=== PATIENT | male | born 1950 | race Caucasian/White ===

== ENCOUNTER 2019-06-21 23:45 | Inpatient (IN) | payer MEDICARE, MEDICAID ==
[~2019-06-21] VITALS: Ht 182.9 cm; Wt 123.8 kg
[~2019-06-21 23:45] MED LIST: CARV12.5 PO
[2019-06-22] VITALS (41 sets, daily range): BP systolic 69–153; BP diastolic 40–79
[2019-06-22] MEDS ORDERED: ONDANSETRON HCL/PF 4 MG/2 ML VIAL ONE (00:10)
--- NOTE | 2019-06-22 00:15 | NUR ---
PT CAME TO ER BIB RA C/O NAUSEA AND VOMITING OF BLOOD. PT STATES THAT HE WAS AT HOME WHEN HE WAS VOMITING BLOOD AFTER TAKING ZOFRAN AT HOME. PT STATES HE HAS HEMOPHILIA. PT ALSO COMPLAINS OF CONSTIPATION AND TOOK MILK OF MAGNESIA. AAOX4. NO SOB. BREATHING EVENLY AND UNLABORED ON ROOM AIR. CONNECTED TO MONITOR.
[2019-06-22] MEDS ORDERED: IV NS 0.9% 500 ML BAG IV ONE (00:30)
[2019-06-22] MEDS ORDERED: ONDANSETRON HCL/PF 4 MG/2 ML VIAL IVP ONE (00:30)
[2019-06-22 00:37] LABS: BASOPHILS % (AUTO) 0.2 % (0.0-2.0); EOSINOPHILS % (AUTO) 0.2 % (0.0-6.0); HEMATOCRIT 37 % (39-51); HEMOGLOBIN 11.9 g/dL (13.5-17.5); LYMPHOCYTES # (AUTO) 0.9 /CMM (0.8-4.8); LYMPHOCYTES % (AUTO) 7.7 % (20.0-44.0); MEAN CORPUSCULAR HGB CONC 33 g/dl (31.0-36.0); MEAN CORPUSCULAR VOLUME 92 fL (80-96); MONOCYTES # (AUTO) 0.7 /CMM (0.1-1.30); MONOCYTES % (AUTO) 6.2 % (2.0-12.0); NEUTROPHILS # (AUTO) 9.6 /CMM (1.8-8.9); NEUTROPHILS % (AUTO) 85.7 % (43.0-81.0); PLATELET COUNT (AUTO) 99 /CMM (150-450); RED BLOOD CELL COUNT(AUTO) 3.97 MIL/uL (4.5-6.0); WHITE BLOOD COUNT (AUTO) 11.2 K/uL (4.3-11.0)
[2019-06-22 00:44] LABS: CARBON DIOXIDE 26 mmol/L (21-32); CHLORIDE 104 mmol/L (98-107); CREATININE 0.9 mg/dL (0.6-1.3); GLUCOSE 173 mg/dL (74-106); POTASSIUM 5.3 mmol/L (3.5-5.1); SODIUM SERUM 139 mmol/L (136-145); UREA NITROGEN, BLOOD 17 mg/dL (7-18)
[2019-06-22 00:49] LABS: ALANINE AMINOTRANSFERASE 26 U/L (12-78); ALBUMIN 2.6 g/dL (3.4-5.0); ALKALINE PHOSPHATASE 139 U/L (46-116); ASPARTATE AMINOTRANSFERASE 37 U/L (15-37); BILIRUBIN,DIRECT 0.5 mg/dL (0.0-0.2); BILIRUBIN,TOTAL 1.4 mg/dL (0.2-1.0); LIPASE 64 U/L (73-393); TOTAL PROTEIN, SERUM 7.1 g/dL (6.4-8.2)
--- NOTE | 2019-06-22 01:09 | NUR ---
PT SENT TO CT
--- NOTE | 2019-06-22 01:14 | NUR ---
FECAL OCCULT BLOOD SAMPLE COLLECTED AND SENT TO LAB
--- NOTE | 2019-06-22 01:23 | NUR ---
RETURN FROM CT
[2019-06-22 01:50] LABS: LYMPHOCYTES % (MANUAL) 5 % (16-48); MONOCYTES % (MANUAL) 4 % (0-11.0); NEUTROPHILS % (MANUAL) 91 (42-76)
[2019-06-22] MEDS ORDERED: METOCLOPRAMIDE HCL 10 MG/2 ML VIAL IV ONE (02:00)
[2019-06-22 02:13] LABS: OCCULT BLOOD STOOL NEGATIVE (NEGATIVE)
[2019-06-22] MEDS ORDERED: HYDROCODONE/APAP 5/325MG 1 EACH TABLET PO PRN (02:30)
[2019-06-22] MEDS ORDERED: ONDANSETRON HCL/PF 4 MG/2 ML VIAL IVP PRN (02:30)
[2019-06-22] MEDS ORDERED: MORPHINE SULFATE INJ 2 MG/ML DISP.SYRIN IV PRN (02:30)
[2019-06-22] MEDS ORDERED: MAGNESIUM HYDROXIDE 30 ML UDC PO PRN (02:30)
[2019-06-22] MEDS ORDERED: MAG HYDROX/AL HYDROX/SIMETH 30 ML UDC PO PRN (02:30)
[2019-06-22] MEDS ORDERED: ACETAMINOPHEN 325 MG TABLET PO PRN (02:30)
[2019-06-22] MEDS ORDERED: Z GUARD REMEDY 2 OZ OINT TP PRN (02:30)
[2019-06-22] MEDS ORDERED: ZOLPIDEM TARTRATE 5 MG TABLET PO PRN (02:30)
[2019-06-22] MEDS ORDERED: METOCLOPRAMIDE HCL 10 MG/2 ML VIAL ONE (02:48)
--- NOTE | 2019-06-22 02:59 | NUR ---
Report given to Aranza RODRIGUEZ for MELLISA.
--- NOTE | 2019-06-22 03:00 | NUR ---
received from the ER via [facility] alert and orientated. C/o back pain, laying on the gurneys does't help. I need something for pain and some jello, he is demanding. Spoke to hime calmly and told him I needed to admit him and to let him know, the MD wrote Nothing by mouth, but I would let him rinse his mouth. Patient is pael Saline lock left AC g20 patent
[2019-06-22] MEDS: IV 1/2NS 1000 ML 1,000 ML IV PRN (04:08)
[2019-06-22] MEDS ORDERED: FINA5TAB11 PO (04:40)
--- NOTE | 2019-06-22 06:05 | NUR ---
ENDING NOTES: RECIEVED PATIENT FROM ER IN AN IRRITABLE MOOD, UPSET HE CANNOT EAT, i EXPLAINED TO HIM THE REASON FOR THIS, mEDICATED WITH MORPHINE 2 MG FOR BACK PAIN OF #8 IN INTENSITY AND EFFECTIVE. HE HAD A bm USING THE bs COLOR BLACK bm SOFT. NOTED STOOL SENT IN THE er AND WAS NEG FOR OCB. PATENT IS PALE, BUT SKIN WARM AND DRY. HE C/O I JUST WANT TO EAT AND GO TO SLEEP. I A LLOWED HIM TO RINSE HIS MOUTH AND SPIT THE H2O OUT. BEDALARM ON. HE STATED SINCE HIS BACK SURGERY 04/19/2019 HIS LEGS ARE NUMB HE CAN STAND AND USE THEM BUT THEY BOTH ARE NUMB.
--- NOTE | 2019-06-22 06:20 | NUR ---
ENDING NOTE ADDITIONAL NOTES: PATIENT OOB TO THE BSC, 2ND BLACK MUSHY STOOL SMELLING LIKE GI BLEED STOOL.
[2019-06-22 07:00] LABS: BASOPHILS % (AUTO) 0.1 % (0.0-2.0); HEMATOCRIT 31 % (39-51); HEMOGLOBIN 10.5 g/dL (13.5-17.5); LYMPHOCYTES # (AUTO) 0.7 /CMM (0.8-4.8); LYMPHOCYTES % (AUTO) 7.4 % (20.0-44.0); MEAN CORPUSCULAR HGB CONC 34 g/dl (31.0-36.0); MEAN CORPUSCULAR VOLUME 91 fL (80-96); MONOCYTES # (AUTO) 0.5 /CMM (0.1-1.30); MONOCYTES % (AUTO) 4.8 % (2.0-12.0); NEUTROPHILS # (AUTO) 8.4 /CMM (1.8-8.9); NEUTROPHILS % (AUTO) 87.7 % (43.0-81.0); PLATELET COUNT (AUTO) 88 /CMM (150-450); RED BLOOD CELL COUNT(AUTO) 3.45 MIL/uL (4.5-6.0); WHITE BLOOD COUNT (AUTO) 9.6 K/uL (4.3-11.0)
[2019-06-22 07:22] LABS: LYMPHOCYTES % (MANUAL) 7 % (16-48); MONOCYTES % (MANUAL) 3 % (0-11.0); NEUTROPHILS % (MANUAL) 90 (42-76)
--- NOTE | 2019-06-22 07:30 | NUR ---
RN OPENING NOTES RECEIVED PATIENT IN BED RESTING. NOT IN ANY FORM OF DISTRESS, NO SOB. IV ACCESS INTACT AND PATENT. COMPLAINTS OF BLOODY STOOLS. WILL NOTIFY MD. KEPT PATIENT SAFE AND COMFORTABLE. KEPT NPO. BED IN LOW/FIFI DPSOTIION, SIDERAILS UPX2, CALL LIGHT IN REACH. WILL MONITOR ACCORDINGLY
[2019-06-22] MEDS ORDERED: FURO20TA4 PO (08:12)
[2019-06-22] MEDS ORDERED: OLME20TA23 PO (08:12)
[2019-06-22] MEDS ORDERED: OXYC10TA49 PO (08:12)
[2019-06-22] MEDS ORDERED: AMIL5TAB9 PO (08:12)
[2019-06-22] MEDS ORDERED: MULT-447 PO (08:14)
[2019-06-22] MEDS ORDERED: PANTOPRAZOLE 40 MG VIAL IV SCH (09:00)
[2019-06-22] MEDS ORDERED: OCTREOTIDE 1,250 MCG in IV NS 0.9% 247.5 ML IV PRN ×2 (10:30→11:00)
[2019-06-22] MEDS ORDERED: LORAZEPAM INJ 2 MG/ML VIAL IV PRN (10:30)
--- NOTE | 2019-06-22 10:45 | NUR ---
PICKED UP FOR EDG. CONSENTS SIGNED BY PATIENT.
[2019-06-22] MEDS ORDERED: EPINEPHRINE (1:1000) 1 MG/ML AMPUL ONE (11:09)
[2019-06-22] MEDS ORDERED: EPINEPHRINE (1:10,000) SYRINGE 1 MG/10 ML DISP.SYRIN ONE (11:10)
--- NOTE | 2019-06-22 11:45 | NUR ---
received a call from OR nurse, stated that patient will be transfer to ICU.
[2019-06-22 11:56] LABS: OCCULT BLOOD STOOL NEGATIVE (NEGATIVE)
--- NOTE | 2019-06-22 12:00 | NUR ---
RT NOTE RECEIVED PT FROM OR, INTUBATED WITH AN 8.0 ETT, 23 @LIP XRAY PENDING, DR. COLON AT BESIDE WITH NOTED VENT SETTINGS ORDER ABG IN 1HR, WILL CONTINUE TO MONITOR CLOSELY
--- NOTE | 2019-06-22 12:10 | NUR ---
ICU/RN PT TRANSFERRED FROM OR ,S/P EGD,INTUBATED ON THE VENT AC MODE.FIO2-100%. SAT O2-100% .HR -130-135 BPM.V/S STABLE.AFEBRILE.PT IS STILL UNDER ANESTHESIA.ON SANDOSTATIN DRIP.AND IV FLUIDS.
[2019-06-22 12:48] LABS: BASOPHILS % (AUTO) 0.1 % (0.0-2.0); EOSINOPHILS % (AUTO) 0.1 % (0.0-6.0); HEMATOCRIT 24 % (39-51); HEMOGLOBIN 7.8 g/dL (13.5-17.5); MEAN CORPUSCULAR HGB CONC 32 g/dl (31.0-36.0); MEAN CORPUSCULAR VOLUME 94 fL (80-96); MONOCYTES # (AUTO) 2.5 /CMM (0.1-1.30); MONOCYTES % (AUTO) 9.9 % (2.0-12.0); NEUTROPHILS # (AUTO) 20.3 /CMM (1.8-8.9); NEUTROPHILS % (AUTO) 81.9 % (43.0-81.0); PLATELET COUNT (AUTO) 144 /CMM (150-450); RED BLOOD CELL COUNT(AUTO) 2.58 MIL/uL (4.5-6.0); WHITE BLOOD COUNT (AUTO) 24.8 K/uL (4.3-11.0)
--- NOTE | 2019-06-22 13:00 | NUR ---
RN NOTES: PATIENT BELONGINGS BROUGHT TO ICU. GAVE TO JENNIFER ENGLE
--- NOTE | 2019-06-22 13:00 | NUR ---
ICU/RN NEW IV INSERTED.F/C INSERTED ORDERED.DIPRIVAN ORDERED FOR SEDATION PT PLACED ON RESTRAINS.
[2019-06-22] MEDS: PROPOFOL 100 ML IV PRN ×3 (13:23→20:59)
[2019-06-22] MEDS ORDERED: IV NS 0.9% 250 ML IV ONE (14:00)
[2019-06-22 16:43] LABS: HEMATOCRIT 26 % (39-51); HEMOGLOBIN 8.3 g/dL (13.5-17.5); LYMPHOCYTES % (AUTO) 4.9 % (20.0-44.0); MEAN CORPUSCULAR HGB CONC 32 g/dl (31.0-36.0); MEAN CORPUSCULAR VOLUME 94 fL (80-96); MONOCYTES # (AUTO) 5.5 /CMM (0.1-1.30); MONOCYTES % (AUTO) 13.5 % (2.0-12.0); NEUTROPHILS # (AUTO) 33.2 /CMM (1.8-8.9); NEUTROPHILS % (AUTO) 81.6 % (43.0-81.0); PLATELET COUNT (AUTO) 167 /CMM (150-450); RED BLOOD CELL COUNT(AUTO) 2.76 MIL/uL (4.5-6.0)
--- NOTE | 2019-06-22 17:00 | NUR ---
ICU/RN CENTRAL LINE INSERTED ORDERED.LEVOPHED STARTED ORDERED.DUE MEDS ARE GIVEN.RIGHT NG TUBE IN PLACE,CONNECTED TO LOW INTERMEDIATE SUCTION 400 ML BLOODY SECRETION OUTPUT.PM CARE PROVIDED.REPOSITION FOR COMFORT.F/C IN PLACE WITH MINIMAL AMOUNT OF URINE.PT IS ON DIPRIVAN .
[2019-06-22 17:07] LABS: WHITE BLOOD COUNT (AUTO) 40.7 K/uL (4.3-11.0)
[2019-06-22] MEDS: LEVOFLOXACIN 500 MG /D5W 100ML 500 MG in PREMIX 1 EA IV SCH (17:09)
[2019-06-22 17:14] LABS: BAND % (MANUAL) 2 % (0.0-5.0); LYMPHOCYTES % (MANUAL) 7 % (16-48); MONOCYTES % (MANUAL) 13 % (0-11.0); NEUTROPHILS % (MANUAL) 88 (42-76)
[2019-06-22] MEDS: NOREPINEPHRINE 8 MG in IV D5W 500 ML IV PRN (17:56)
[2019-06-22] MEDS: PANTOPRAZOLE 40 MG VIAL IV SCH (17:57)
--- NOTE | 2019-06-22 20:17 | NUR ---
Pt received on [facility] vent with ETT 8.0 @ 23cm lip. Vent setting as noted. Pt tolerating setting well, no sob or distress noted. Diminished bilateral breath sounds noted. Lock Tender noted. Vent to red outlet. Alarms set and audible. Will continue to monitor. Addendum: 06/22/19 at 2017 by CHAPARRITA ROSADO RT Amended: Links added.
[2019-06-22 21:24] LABS: HEMOGLOBIN 7.8 g/dL (13.5-17.5)
[2019-06-23] VITALS (66 sets, daily range): BP systolic 44–166; BP diastolic 20–113
[2019-06-23] MEDS: IV 1/2NS 1000 ML 1,000 ML IV PRN ×2 (01:10→09:32)
[2019-06-23] MEDS: PROPOFOL 100 ML IV PRN ×3 (01:16→09:28)
[2019-06-23] MEDS ORDERED: NOREPINEPHRINE 4 MG/4 ML AMPUL IV ONE ×2 (01:31→05:45)
[2019-06-23] MEDS: NOREPINEPHRINE 8 MG in IV D5W 500 ML IV PRN ×2 (01:34→05:50)
[2019-06-23 05:02] LABS: BASOPHILS # (AUTO) 0.1 /CMM (0.0-0.2); BASOPHILS % (AUTO) 0.1 % (0.0-2.0); LYMPHOCYTES # (AUTO) 2.9 /CMM (0.8-4.8); LYMPHOCYTES % (AUTO) 7.8 % (20.0-44.0); MEAN CORPUSCULAR HGB CONC 32 g/dl (31.0-36.0); MEAN CORPUSCULAR VOLUME 96 fL (80-96); MONOCYTES # (AUTO) 2.3 /CMM (0.1-1.30); MONOCYTES % (AUTO) 6.2 % (2.0-12.0); NEUTROPHILS % (AUTO) 85.9 % (43.0-81.0); PLATELET COUNT (AUTO) 148 /CMM (150-450)
[2019-06-23 05:11] LABS: CALCIUM, SERUM 7.3 mg/dL (8.5-10.1); CREATININE 2.8 mg/dL (0.6-1.3); POTASSIUM 5.2 mmol/L (3.5-5.1)
[2019-06-23] MEDS ORDERED: PHENYLEPHRINE 10 MG/ML VIAL ONE (05:19)
[2019-06-23 05:22] LABS: HEMOGLOBIN 6.4 g/dL (13.5-17.5); WHITE BLOOD COUNT (AUTO) 37.2 K/uL (4.3-11.0)
[2019-06-23 05:23] LABS: HEMATOCRIT 20 % (39-51)
[2019-06-23] MEDS: PHENYLEPHRINE 80 MG in IV D5W 250 ML IV PRN ×3 (05:26→14:15)
--- NOTE | 2019-06-23 05:30 | NUR ---
MARKETING INTERN NOTE PT SBP 40-60 WITH LEVO MAXED OUT. NOTIFIED VOCATIONAL REHABILITATION SPECIALIST WITH ORDERS TO START PHENYLEPHRINE. ORDERS NOTED AND CARRIED OUT.
[2019-06-23 06:27] LABS: HEMOGLOBIN 8.4 g/dL (13.5-17.5)
--- NOTE | 2019-06-23 07:37 | NUR ---
TECHNICAL EDITOR NOTE VENT SETTINGS WELL TOLERATED. NGT TO LOW INTERMITTENT SUCTION WITH 200 ML OF SANGUINOUS OUTPUT. REMAINS ON LEVO, DIPRIVAN, SANDOSTATIN AND EMIR DRIPS. ALL NEEDS ATTENDED TO PROMPTLY. SUCTIONED NEEDED. REPOSITIONED Q2H. BLOOD PRESSURE MONITORED AND PRESSORS TITRATED NEEDED. CRITICAL LAB VALUE H/H 6.4 WITH REDRAW RESULTING AT 8.08/27. WILL ENDORSE TO NEXT SHIFT FOR CONTINUITY OF CARE.
[2019-06-23] MEDS: PANTOPRAZOLE 40 MG VIAL IV SCH (08:33)
[2019-06-23 08:42] LABS: BAND % (MANUAL) 6 % (0.0-5.0); LYMPHOCYTES % (MANUAL) 4 % (16-48); MONOCYTES % (MANUAL) 4 % (0-11.0); NEUTROPHILS % (MANUAL) 86 (42-76)
--- NOTE | 2019-06-23 09:00 | NUR ---
ICU/RN SEDATION VACATION PROVIDED.DECREASED PROPOFOL.PT IS NOT STABLE ON 2 PRESSORS MAXIMUM DOSES,ON SANDOSTATIN DRIP,IV FLUIDS ORDERED.NO URINE OUTPUT.
[2019-06-23] MEDS: NOREPINEPHRINE 16 MG in IV D5W 500 ML IV PRN ×2 (09:15→14:54)
[2019-06-23 09:18] LABS: ABG BASE EXCESS -16.2 mmol/L; ABG OXYGEN SATURATION 96.2 % (92.0-98.5); ABG PCO2 25.4 mmHg (35.0-45.0); ABG PH 7.217 (7.350-7.450); ABG PO2 113.6 mmHg (75.0-100.0); AaDO2 178.4 mmHg; COHb 0.3 % (0.5-1.5); MetHb 1.4 % (0.0-1.5); O2Hb 94.6 % (94.0-97.0); PEEP,BG 0 cm H2O; SITE, ABG Right Radial; VT, ABG 700 mL
--- NOTE | 2019-06-23 11:00 | NUR ---
ICU/RN HILARIA JENSEN.
[2019-06-23] MEDS: LEVOFLOXACIN 500 MG /D5W 100ML 500 MG in PREMIX 1 EA IV SCH (11:06)
--- NOTE | 2019-06-23 11:20 | NUR ---
ICU/RN CODE BLUE ACTIVATED.PT HAS NO BLOOD PRESSURE, PEA.
[2019-06-23] MEDS ORDERED: EPINEPHRINE (1:10,000) SYRINGE 1 MG/10 ML DISP.SYRIN IVP ONE ×2 (11:30→12:30)
[2019-06-23] MEDS ORDERED: SODIUM BICARBONATE SYR 50 MEQ/50 ML DISP.SYRIN IV ONE ×2 (11:30→12:30)
[2019-06-23] MEDS ORDERED: FEE EMEERGENCY 1 MIN EA MC ONE ×2 (11:30→12:30)
[2019-06-23] MEDS ORDERED: Sodium Bicarbonate 150 MEQ in IV D5W 1,000 ML IV PRN (11:30)
--- NOTE | 2019-06-23 11:30 | NUR ---
RT NOTE: LATE ENTRY-RESPONDED TO CODE BLUE AND BEGAN COMPRESSIONS IMMEDIATELY. RT'S (OPAL) AT BEDSIDE. ONCE PATIENT WAS STABILIZED, PATIENT WAS PLACED BACK ON MECHANICAL VENT AND VENT SETTINGS CHANGED PER 'S ORDERS. ALARMS CHECKED AND AUDIBLE. AMBU BAG AT [facility].
[2019-06-23] MEDS ORDERED: VASOPRESSIN INJ 50 UNIT in IV D5W 497.5 ML IV PRN (12:00)
[2019-06-23] MEDS ORDERED: IV NS 0.9% 1,000 ML BAG IV ONE (12:30)
[2019-06-23] MEDS ORDERED: EPINEPHRINE (1:1000) 1 MG in IV D5W 250 ML IV PRN (12:30)
--- NOTE | 2019-06-23 12:40 | NUR ---
ICU/RN SECOND CODE BLUE ACTIVATED .PT IS PEA.3 DOSES OF EPINEPHRINE IV ,2 AMPS OF SODIUM BICARB GIVEN,BS -29.D 50% GIVEN . 1L BOLUS OF NS GIVEN,PT HAS PRBC INFUSING AT THIS TIME.ON SANDOSTATIN DRIP AND DW5 PLUS 3 AMPS OF SODIUM BICARBONATE.A-LINE INSERTED BY HOMER KAY.HE IS AT BEDSIDE.
[2019-06-23 12:44] LABS: ABG BASE EXCESS -24.2 mmol/L; ABG OXYGEN SATURATION 98.6 % (92.0-98.5); ABG PCO2 22.3 mmHg (35.0-45.0); ABG PH 6.975 (7.350-7.450); ABG PO2 361.3 mmHg (75.0-100.0); AaDO2 329.4 mmHg; MetHb 1.9 % (0.0-1.5); O2Hb 96.7 % (94.0-97.0); SITE, ABG A-Line
[2019-06-23 13:50] LABS: BASOPHILS # (AUTO) 0.2 /CMM (0.0-0.2); BASOPHILS % (AUTO) 0.4 % (0.0-2.0); LYMPHOCYTES # (AUTO) 5.5 /CMM (0.8-4.8); LYMPHOCYTES % (AUTO) 15.5 % (20.0-44.0); MEAN CORPUSCULAR HGB CONC 30 g/dl (31.0-36.0); MEAN CORPUSCULAR VOLUME 104 fL (80-96); MONOCYTES # (AUTO) 3.2 /CMM (0.1-1.30); MONOCYTES % (AUTO) 8.9 % (2.0-12.0); NEUTROPHILS # (AUTO) 26.9 /CMM (1.8-8.9); NEUTROPHILS % (AUTO) 75.2 % (43.0-81.0); PLATELET COUNT (AUTO) 66 /CMM (150-450)
[2019-06-23 13:52] LABS: HEMATOCRIT 17 % (39-51); HEMOGLOBIN 5.1 g/dL (13.5-17.5); RED BLOOD CELL COUNT(AUTO) 1.65 MIL/uL (4.5-6.0); WHITE BLOOD COUNT (AUTO) 35.7 K/uL (4.3-11.0)
[2019-06-23 14:25] LABS: CALCIUM, SERUM 6.7 mg/dL (8.5-10.1); CREATININE 4.1 mg/dL (0.6-1.3)
[2019-06-23 14:26] LABS: TOTAL PROTEIN, SERUM 3.2 g/dL (6.4-8.2)
[2019-06-23 14:59] LABS: ALBUMIN 1.1 g/dL (3.4-5.0); POTASSIUM 6.5 mmol/L (3.5-5.1)
[2019-06-23 15:03] LABS: BAND % (MANUAL) 9 % (0.0-5.0); LYMPHOCYTES % (MANUAL) 9 % (16-48); MONOCYTES % (MANUAL) 10 % (0-11.0); NEUTROPHILS % (MANUAL) 70 (42-76); REACTIVE LYMPHOCYTES 2 % (0-0)
--- NOTE | 2019-06-23 15:53 | NUR ---
PATIENT NOTED ASYSTOLE ON MONITOR. PATIENT NOTED WITHOUT HEART TONE, NO PALPABLE PULSES. NO SPONTANEOUS RESPIRATIONS. PUPILS FIXED AND DILATED. PATIENT IS NOR DNR STATUS. FRIENDS AT BEDSIDE.
--- NOTE | 2019-06-23 15:53 | NUR ---
RT NOTE: PATIENT PER CRN (EDIN).
--- NOTE | 2019-06-23 16:00 | NUR ---
ICU/RN PT FRIENDS AT BED SIDE HAS NO MORTUARY INFO AT THIS TIME .BODY WILL GO TO [facility].
--- NOTE | 2019-06-23 17:40 | NUR ---
ICU/RN POST MORTEM CARE DONE .BODY TRANSFERRED TO [facility]. FAMILY DOES NOT HAVE ANY ARRANGEMENT AT THIS TIME.
== END 2019-06-23 18:38 | disposition expired | DRG 432 ==
LOC: ER 23:46 → TELE 06-22 02:24 → MED 06-22 08:58 → ICU 06-22 12:02
PROVIDERS: ADMIT Internal Medicine; ATTEND Internal Medicine
PROC: 02HV33Z Insertion of Infusion Device into Superior Vena Cava, Percutaneous Approach (ICD-10-PCS; principal; 2019-06-22)
PROC: B548ZZA Ultrasonography of Superior Vena Cava, Guidance (ICD-10-PCS; 2019-06-22)
PROC: 06L38CZ Occlusion of Esophageal Vein with Extraluminal Device, Via Natural or Artificial Opening Endoscopic (ICD-10-PCS; 2019-06-22)
PROC: 30233N1 Transfusion of Nonautologous Red Blood Cells into Peripheral Vein, Percutaneous Approach (ICD-10-PCS; 2019-06-23)
PROC: 04HY33Z Insertion of Infusion Device into Lower Artery, Percutaneous Approach (ICD-10-PCS; 2019-06-23)
PROC: 5A12012 Performance of Cardiac Output, Single, Manual (ICD-10-PCS; 2019-06-23)
DX: K74.69 Other cirrhosis of liver (principal); I85.11 Secondary esophageal varices with bleeding; G93.41 Metabolic encephalopathy; J96.01 Acute respiratory failure with hypoxia; N17.0 Acute kidney failure with tubular necrosis; D66 Hereditary factor VIII deficiency; D62 Acute posthemorrhagic anemia; E87.2 Acidosis; G93.49 Other encephalopathy; K76.6 Portal hypertension; J98.11 Atelectasis; R18.8 Other ascites; R57.1 Hypovolemic shock; D69.6 Thrombocytopenia, unspecified; I10 Essential (primary) hypertension; E66.01 Morbid (severe) obesity due to excess calories; F32.9 Major depressive disorder, single episode, unspecified; F41.9 Anxiety disorder, unspecified; G47.33 Obstructive sleep apnea (adult) (pediatric); M51.36 Other intervertebral disc degeneration, lumbar region; K57.30 Diverticulosis of large intestine without perforation or abscess without bleeding; K80.20 Calculus of gallbladder without cholecystitis without obstruction; K75.81 Nonalcoholic steatohepatitis (NASH); M48.10 Ankylosing hyperostosis [Forestier], site unspecified; Z79.891 Long term (current) use of opiate analgesic; Z68.37 Body mass index [BMI] 37.0-37.9, adult; E16.2 Hypoglycemia, unspecified
CPT/HCPCS: 31720; 36415; 36600; 70450-TC; 71045-TC; 80048-TC; 80053-TC; 80061-TC; 80076-TC; 82272-TC; 82803-TC; 82962-TC; 83605-TC; 83690-TC; 83735-TC; 84100-TC; 84484-TC; 85025-TC; 85027-TC; 85730-TC; 86850-TC; 86921-TC; 87081-TC; 92950-TC; 94002-TC; 94003-TC; A4216; C1751; C9113; G0378; J0171; J1956; J2270; J2354; J2370; J2405; J2765; J3490; J7030; J7040; J7050; J7060; J7070; P9016-BL